=== PATIENT | female | born 1950 | race Caucasian/White ===

== ENCOUNTER → 2024-11-29 10:45 | Outpatient (CLI) | payer MEDICARE, OTHER, SELFPAY ==
--- NOTE | 2024-11-29 18:36 | ST.SWALLOW ---
Visit Care Team Role Provider Type Mavis Tejada MD Attending Provider Non-Staff Primary Care Provider Referring Provider Specialty: Family Practice Address: [address] [place] [address], [id number] Email: Modified Barium Swallow Study ASSISTED LIVING EXECUTIVE DIRECTOR Modified Barium Swallow Study Start: 11/29/24 12:52 Freq: Status: Active Protocol: Document 11/29/24 15:49 LNK (Rec: 11/29/24 16:44 LNK [id number]) Modified Barium Swallow Study Total Time Visit Start Time 12:00 Visit Stop Time 12:45 Total Visit Minutes [address] Tejada Reason for Referral dysphagia Setting Setting Outpatient Care Patient Information Identification Type Name,Date of Patient History Pt was seen for a Modified Barium Swallow Study secondary to difficulty with eating. Pt reported that she has a high hernia that was noted in a recent EGD. Pt stated that she is easily full and if she eats too fast or too much, she will vomit. She also noted that she has been losing a lot of weight as a result of her hernia. Pt denied difficulty with chewing and or swallowing. She denied coughing/choking when eating/drinking. Subjective Observations Pt was seated in the fluoroscopy chair with directions and procedures described for her. She indicated she understood and agreed to proceed. Patient Positioning Position View Lat-A/P Imaging Lateral View Textures Administered Trials Presented Thin Liquid via Spoon (IDDSI 0 ),Thin Liquid via Cup (IDDSI 0 ),Extremely Thick Liquid via Spoon (IDDSI 4),Regular (IDDSI 7) Barium Tablet Yes The IDDSI Framework Protocol: IDDSI.1 Oral Impairment Source: The Modified Barium Swallow Impairment Profile (MBSImP??) Lip Closure No labial escape Tongue Control During Bolus Hold Cohesive bolus between tongue to palatal seal Bolus Preparation/Mastication Timely & efficient chewing & mashing Bolus Transport/Lingual Motion Delayed initiation of tongue motion Oral Residue Trace residue lining oral structures,Residue collection on oral structures Location Tongue Initiation of Pharyngeal Swallow Bolus head at pyriforms Additional Oral Impairment Observations *OME and DKS were observed to be WNL. *Dentition natural and in good hygiene *Mastication observed with rotary chew pattern. *Good bolus formation, control and AP transition. Oral phase of swallow WFL Pharyngeal Impairment Source: The Modified Barium Swallow Impairment Profile (MBSImP??) Soft Palate Elevation No bolus between soft palate & pharyngeal wall Laryngeal Elevation Part.sup.move.thyroid cart/ part.approx.arytenoids to epiglot.petiole Anterior Hyoid Excursion Partial anterior movement Epiglottic Movement Complete inversion Laryngeal Vestibular Closure Complete; no air/contrast in laryngeal vestibule Pharyngeal Stripping Wave Present - complete Pharyngoesophageal Segment Opening Complete distention & complete duration; no obstruction of flow Tongue Base Retraction Wide column of contrast/air betwn tongue base & post. pharyngeal wall Pharyngeal Residue Collection of residue within/ on pharyngeal structures Location Valleculae Additional Pharyngeal Impairment *Reduced base of tongue Observations retraction strength *Reduced hyolaryngeal elevation and movement *Complete epiglottal inversion with good seal of laryngeal vestibule *Pharyngeal pooling observed in valecullae - pooling cleared with subsequent swallows *No laryngeal penetration or tracheal aspiration observed Pharyngeal phae of swallow WFL A/P View Textures Administered Trials Presented Thin Liquid via Cup (IDDSI 0), Extremely Thick Liquid via Spoon (IDDSI 4) The IDDSI Framework Protocol: IDDSI.1 A/P View Observations Pharyngeal Contraction Complete Esophageal Clearance Upright Position Esophageal retention w/ regtrograde flow below pharyngoesoph segment Vocal Fold Function Good Esophageal Function Slowed Clearing,Reverse Peristalsis Additional A-P Observations *Esophageal retention from sternal area to mid- esophagus noted after pt position changed to AP *Solid and semi-solid trials appeared to clear the esophagus in a timely manner *Liquid trials were observed to be retained from the aortic arch area to the sternum. Retroflow of upper esophagus observed *Large hiatal hernia noted above the diaphragm Clinical Impressions Dysphagia Type Esophageal Findings *Oral and pharyngeal swallow phases observed to be WFL *Esophageal phase demonstrated retention with retroflow in upper esophagus *Hiatal hernia noted *Pt appears to demonstrate esophageal and stomach issues that are not within ASSISTED LIVING EXECUTIVE DIRECTOR scope of practice. *Pt reported she recently had EGD and was told that her structures were WNL with the exception of a hernia *Recomend pt return to GI for regular (not modified) barium swallow study of GI structures for further assessment Patient Appropriate for Therapy No Recommendations Diet Comments No change in pt diet at this time Aspiration Precautions Additional Precautions Remain upright 30+ minutes to allow esophagus to empty Treatment Plan Recommended Referrals GI Consult
== END ==
LOC: RAD 10:49
PROVIDERS: PCP Family Medicine; Referring Provider Family Medicine; Visit Provider Family Medicine
DX: K44.9 Diaphragmatic hernia without obstruction or gangrene (principal); R68.81 Early satiety; E78.5 Hyperlipidemia, unspecified
CPT/HCPCS: 74230; 92611